=== PATIENT | male | born 1990 | race Caucasian/White ===

== ENCOUNTER 2019-11-18 04:56 | Observation (INO) | payer SELFPAY ==
[~2019-11-18] VITALS: Ht 170.2 cm; Wt 79.8 kg
[2019-11-18] MEDS ORDERED: LORAZEPAM INJ 2 MG/ML VIAL IV ONE ×3 (05:00→05:45)
[2019-11-18] MEDS ORDERED: SODIUM CHLORIDE 0.9% 1000ML 1,000 ML IV ONE ×2 (05:00→06:45)
[2019-11-18] MEDS ORDERED: LORAZEPAM INJ 2 MG/ML VIAL ONE (05:06)
[2019-11-18] MEDS ORDERED: ACETAMINOPHEN 1000 MG/100 ML IV STA (05:24)
[2019-11-18] MEDS ORDERED: ACETAMINOPHEN 1000 MG/100 ML 100 ML IV ONE (05:38)
[2019-11-18 05:46] LABS: BASOPHILS # (AUTO) 0.1 (0.0-0.1); BASOPHILS % 0.7 % (0.0-1.0); EOSINOPHILS % 0.2 % (0.0-6.0); HEMATOCRIT 41.9 % (38.2-49.6); HEMOGLOBIN 14.9 g/dL (14.0-18.0); LYMPHOCYTES # (AUTO) 0.9 (1.0-3.2); LYMPHOCYTES % 8.9 % (18.0-39.1); MEAN CORPUSCULAR HEMOGLOBIN 32.2 pg (28-32); MEAN CORPUSCULAR HGB CONC 35.6 g/dL (31-35); MEAN CORPUSCULAR VOLUME 90.5 fL (81-99); MONOCYTES # (AUTO) 0.8 (0.2-0.8); MONOCYTES % 7.8 % (4.4-11.3); NEUTROPHILS % 82.1 % (38.7-80.0); PLATELET COUNT 309 x10e3/uL (140-360); RED BLOOD COUNT 4.63 x10e6/uL (4.3-5.7); RED CELL DISTRIBUTION WIDTH 12.3 % (11.7-14.4)
[2019-11-18 05:54] LABS: CLARITY,URINE CLEAR (CLEAR); COLOR,URINE YELLOW (YELLOW); KETONES,URINE NEGATIVE (NEGATIVE); LEUKOCYTE ESTERASE ,URINE NEGATIVE (NEGATIVE); NITRITE,URINE NEGATIVE (NEGATIVE); PROTEIN,URINE DIPSTICK 2+ (NEGATIVE)
[2019-11-18 05:56] LABS: AMPHETAMINES SCREEN,URINE POSITIVE (NEGATIVE); BENZODIAZEPINES SCREEN,URINE NEGATIVE (NEGATIVE); PHENCYCLIDINE SCREEN,URINE NEGATIVE (NEGATIVE)
[2019-11-18 05:57] LABS: BILIRUBIN,URINE NEGATIVE (NEGATIVE); URINE UROBILINOGEN 1 mg/dL (0.2 - 1)
[2019-11-18 06:06] LABS: ALANINE AMINOTRANSFERASE 39 IU/L (0-55); ALBUMIN 4.4 g/dL (3.5-5.0); ALBUMIN/GLOBULIN RATIO 1.8 (0.8-2.0); ALKALINE PHOSPHATASE 73 IU/L (40-150); ANION GAP 13.6 mmol/L (8-16); BLOOD UREA NITROGEN 16 mg/dL (7-26); BUN/CREATININE RATIO 12 (6-25); CALCIUM 9.2 mg/dL (8.4-10.2); CARBON DIOXIDE 27 mmol/L (22-29); CHLORIDE 103 mmol/L (98-107); CREATINE KINASE 466 IU/L (30-200); CREATININE, SERUM 1.34 mg/dL (0.72-1.25); EST GLOMERULAR FILTRATION RATE > 60 ML/MIN (60-); GLUCOSE 102 mg/dL (74-118); POTASSIUM 3.6 mmol/L (3.5-5.1); SODIUM 140 mmol/L (136-145)
[2019-11-18 06:22] LABS: RBC,URINE 0-5 /HPF (0-5)
[2019-11-18 06:23] LABS: BACTERIA,URINE MODERATE /HPF; EPITHELIAL CELLS,URINE FEW /LPF; TRANSITIONAL EPI CELLS,URINE RARE
--- NOTE | 2019-11-18 06:31 | Emergency Department Note ---
History of Present Illnes History of Present Illness Chief Complaint: Drug Abuse/Intoxication History of Present Illness This is a 28 year old male a EMS with report of "unknown drug use" by Clark RAMIREZ and EMS; EMS reports patient was hallucinating, delusional, and paranoid, EMD administered Ketamine 400mg IM en route as EMS states that pt aggressive,. Historian: Patient, [place]/EMS Arrival Mode: [place] History limited by: condition of the patient (ALTERED) Onset (how long ago): unknown Treatments prior to arrival: other (KETAMINE 400 MG IM VIA EMS) Past Medical/Family History Physician Review I have reviewed the patient's past medical and family history. Any updates have been documented here. Past Medical History Unable to obtain PMH: altered mental status Recent Fever: No Clinical Suspicion of Infectio: No New/Unexplained Change in Ment: No Other Medical History: unknown Other Surgery: unknown Social History Unable to obtain PSH: altered mental status Other Last Tetanus: unknown Review of Systems Review of Systems Constitutional: Reports as per HPI Neurological: Reports as per HPI Physical Exam Related Data Triage Vital Signs Vital Signs Date Time Temp Pulse Resp B/P (MAP) Pulse Ox O2 Delivery O2 Flow Rate FiO2 11/18/19 05:00 100.3 137 24 99 Physical Exam CONSTITUTIONAL Constitutional: Present well-developed, Present well-nourished HENT HENT: Present normocephalic, Present atraumatic, Present oropharynx clear/moist, Present nose normal HENT L/R: Present left ext ear normal, Present right ext ear normal EYES Eyes: Reports PERRL, Reports conjunctivae normal NECK Neck: Present ROM normal PULMONARY Pulmonary: Present effort normal, Present breath sounds normal CARDIOVASCULAR Cardiovascular: Present regular rhythm, Present heart sounds normal, Present capillary refill normal, Present tachycardia (135) GASTROINTESTINAL Abdominal: Present soft, Present nontender, Present bowel sounds normal GENITOURINARY Genitourinary: Present exam deferred SKIN Skin: Present warm, Present dry MUSCULOSKELETAL Musculoskeletal: Present ROM normal NEUROLOGICAL Neurological: Present alert, Present abnormal coordination, Present other (CONFUSED, AGITATED) PSYCHOLOGICAL Psychological: Present mood/affect normal, Present judgement normal Results Laboratory Result Diagram: 11/18/19 0515 11/18/19 0515 Laboratory Laboratory Tests Test 11/18/19 05:27 11/18/19 05:15 Urine Color Yellow (YELLOW) Urine Clarity Clear (CLEAR) Urine pH 6.5 (5 - 7) Urine Specific [place] >=1.030 (1.010-1.025) Urine Protein 2+ (NEGATIVE) Urine Glucose (UA) Negative (NEGATIVE) Urine Ketones Negative (NEGATIVE) Urine Blood Negative (NEGATIVE) Urine Nitrite Negative (NEGATIVE) Urine Bilirubin Negative (NEGATIVE) Urine Urobilinogen 1 mg/dL (0.2 - 1) Urine Leukocyte Esterase Negative (NEGATIVE) Urine Opiates Screen Negative (NEGATIVE) Urine Methadone Screen Negative (NEGATIVE) Urine Barbiturates Screen Negative (NEGATIVE) Urine Phencyclidine Screen Negative (NEGATIVE) Urine Amphetamines Screen Positive (NEGATIVE) Urine Methamphetamines Screen Positive (NEGATIVE) Urine Benzodiazepines Screen Negative (NEGATIVE) Urine Cocaine Screen Negative (NEGATIVE) Urine Cannabinoids Screen Negative (NEGATIVE) White Blood Count 9.78 x10e3/uL (4.8-10.8) Red Blood Count 4.63 x10e6/uL (4.3-5.7) Hemoglobin 14.9 g/dL (14.0-18.0) Hematocrit 41.9 % (38.2-49.6) Mean Corpuscular Volume 90.5 fL (81-99) Mean Corpuscular Hemoglobin 32.2 pg (28-32) Mean Corpuscular Hemoglobin Concent 35.6 g/dL (31-35) Red Cell Distribution Width 12.3 % (11.7-14.4) Platelet Count 309 x10e3/uL (140-360) Neutrophils (%) (Auto) 82.1 % (38.7-80.0) Lymphocytes (%) (Auto) 8.9 % (18.0-39.1) Monocytes (%) (Auto) 7.8 % (4.4-11.3) Eosinophils (%) (Auto) 0.2 % (0.0-6.0) Basophils (%) (Auto) 0.7 % (0.0-1.0) Neutrophils # (Auto) 8.0 (2.1-6.9) Lymphocytes # (Auto) 0.9 (1.0-3.2) Monocytes # (Auto) 0.8 (0.2-0.8) Eosinophils # (Auto) 0.0 (0.0-0.4) Basophils # (Auto) 0.1 (0.0-0.1) Absolute Immature Granulocyte (auto 0.03 x10e3/uL (0-0.1) Sodium Level 140 mmol/L (136-145) Potassium Level 3.6 mmol/L (3.5-5.1) Chloride Level 103 mmol/L (98-107) Carbon Dioxide Level 27 mmol/L (22-29) Anion Gap 13.6 mmol/L (8-16) Blood Urea Nitrogen 16 mg/dL (7-26) Creatinine 1.34 mg/dL (0.72-1.25) Estimat Glomerular Filtration Rate > 60 ML/MIN (60-) BUN/Creatinine Ratio 12 (6-25) Glucose Level 102 mg/dL (74-118) Lactic Acid Level 5.3 mmol/L (0.5-2.0) Calcium Level 9.2 mg/dL (8.4-10.2) Total Bilirubin 0.8 mg/dL (0.2-1.2) Aspartate Amino Transf (AST/SGOT) 45 IU/L (5-34) Alanine Aminotransferase (ALT/SGPT) 39 IU/L (0-55) Alkaline Phosphatase 73 IU/L (40-150) Creatine Kinase 466 IU/L (30-200) Creatine Kinase MB 6.00 ng/mL (0-5.0) Troponin I 0.007 ng/mL (0-0.300) Total Protein 6.8 g/dL (6.5-8.1) Albumin 4.4 g/dL (3.5-5.0) Globulin 2.4 g/dL (2.3-3.5) Albumin/Globulin Ratio 1.8 (0.8-2.0) Lab results reviewed: Yes Procedures 12 Lead ECG Interpretation ECG Interpretation : ECG: ECG 1 Pneumatic Tool Repairer: Interpreted by ED physician Date: Nov 18, 2019 Time: 05:04 Rhythm: sinus tachycardia Rate: tachycardia BPM: 132 QRS axis: right ST segments normal: Yes T waves normal: Yes Other findings: no other findings Clinical Impression: abnormal ECG Assessment & Plan Medical Decision Making MDM PT BROUGHT BY EMS WITH REPORT OF DELUSIONS, PARANOIA, AND AGITATION, THEY STATE POLICE BELIEVE PT HAD BEEN USING METH AMPHETAMINE, PT IS ALTERED ON ARRIVAL, DISORIENTED. CBC, CMP, THROID PANEL, UA, UDS, CXR, CT BRAIN , CARDIAC ENZYMES, EKG ORDERED TO EVAL FOR RHABDOMYOLYSIS, MYOCARDIAL INFARCITON, INTRACRANIAL ABNORMALITY, UTI, DRUG USE, ELECTROLYTE ABNORMALITY, PT WITH LOW GRADE FEVER AND POSITIVE LACTIC ACID, HOWEVER HAS DRUG SCREEN POSITIVE FOR METH AMPHETAMINE AND AMPHETAMINE, LACTIC ACID IS NOT DUE TO SEPSIS. CARE TRANSFERRED TO DR RUSS, CXR AND CT HEAD PENDING Assessment & Plan Final Impression: (1) Methamphetamine abuse (2) Delirium Last Vital Signs Date Time Temp Pulse Resp B/P (MAP) Pulse Ox O2 Delivery O2 Flow Rate FiO2 11/18/19 05:00 100.3 137 24 99 Medications in the ED Lorazepam 2 mg ONCE ONCE IV ; Start 11/18/19 at 05:00; Stop 11/18/19 at 05:05; Status DC Sodium Chloride 1,000 ml @ 0 mls/hr Q0M ONCE IV ; Start 11/18/19 at 05:00; Stop 11/18/19 at 05:01; Status DC Lorazepam 2 mg STK-MED ONCE .ROUTE ; Start 11/18/19 at 05:06; Stop 11/18/19 at 05:00; Status DC Acetaminophen 1,000 mg NOW STAT IV ; Start 11/18/19 at 05:24; Stop 11/18/19 at 05:26; Status DC Lorazepam 2 mg ONCE ONCE IV ; Start 11/18/19 at 05:30; Stop 11/18/19 at 05:31; Status DC Acetaminophen 100 ml @ ud STK-MED ONCE IV ; Start 11/18/19 at 05:38; Stop 11/18/19 at 05:32; Status DC Cefepime HCl 100 ml @ 200 mls/hr ONCE ONCE IV ; Start 11/18/19 at 05:45; Stop 11/18/19 at 06:14; Status UNV Lorazepam 2 mg ONCE ONCE IV ; Start 11/18/19 at 05:45; Stop 11/18/19 at 06:12; Status DC MARYURI ZHOU MD Nov 18, 2019 06:31
[2019-11-18 06:54] LABS: SALICYLATE < 5.0 mg/dL (0-30)
--- NOTE | 2019-11-18 07:00 | NUR ---
RECEIVED REPORT FROM ACETYLENE TORCH SOLDERER. WILL COMPLETE AN ASSESSMENT
[2019-11-18] MEDS ORDERED: HALOPERIDOL LACTATE 5 MG/ML VIAL IM ONE (07:15)
[2019-11-18 07:28] LABS: FREE THYROXINE INDEX 2.4633 (1.4-3.8); THYROID STIMULATING HORMONE 2.049 uIU/mL (0.350-4.940)
[2019-11-18] MEDS ORDERED: CEFEPIME 2 GM/NS 0.9% 100 ML 100 ML IV ONE (07:30)
--- NOTE | 2019-11-18 08:12 | NUR ---
2ND LACTIC COMPLETED AFTER NORMAL SALINE BOLUS
--- NOTE | 2019-11-18 08:28 | NUR ---
PATIENT MEDICATED, RADIOLOGY CALLED FOR PATIENT TO GO TO CTHEAD
--- NOTE | 2019-11-18 08:55 | Diagnostic Imaging Report ---
Exam: Head CT without contrast History: Altered mental status Comparison studies: None Technique: Axial images were obtained from the skull base to the vertex. Coronal and sagittal images reconstructed from the axial data. Dose modulation, iterative reconstruction, and/or weight based adjustment of the mA/kV was utilized to reduce the radiation dose to as low as reasonably achievable. Radiation dose: Total DLP: 832.18 mGy*cm. Estimated effective dose: DLP x 0.015 Intravenous contrast: None Findings: Scalp: No abnormalities. Bones: No fractures, blastic or lytic lesions. Brain sulci: Appropriate for age. Ventricles: Normal in size and configuration. No hydrocephalus. Extra-axial spaces: No masses, no fluid collection. Parenchyma: No abnormal densities. No masses, acute hemorrhage, acute or chronic vascular insults. Sellar/suprasellar region: No abnormalities. Craniocervical junction: Patent foramen magnum. No Chiari one malformation. Included paranasal sinuses: Clear. Middle ear mastoid cavities: Clear. Incidental findings: Age-indeterminate bilateral nasal bone and frontal process maxilla fractures. IMPRESSION: 1. No intracranial abnormalities. 2. Age-indeterminate bile nasal bone and frontal process maxilla fractures. Can correlate with point tenderness. Signed by: Dr. Sarwat Stark M.D. on 11/18/2019 8:51 AM
--- NOTE | 2019-11-18 09:11 | Diagnostic Imaging Report ---
X-ray chest AP portable Comparison: None History: Altered mental status. Overdose. Findings: Central airways unremarkable. Cardiomediastinal silhouettes unremarkable. No pleural effusion. No pneumothorax. No focal lung disease. Visualized skeletal structures and upper abdomen unremarkable. Impression: No acute cardiopulmonary disease. Signed by: Don Landa MD on 11/18/2019 9:07 AM
[2019-11-18 10:40] VITALS: BP 148/81
--- NOTE | 2019-11-18 10:40 | NUR ---
PATIENT RECEIVED FROM ER PER STRETCHER. ALERT AND VERBALLY RESPONSIVE. ASSISTED TO BED BY 2 STAFFS. PATIENT REFUSED TO ANSWER ASSESSMENT QUESTIONS STATING " I DON'T WANT TO TALK". REPOSITIONED IN BED. SCRATCH NOTED TO NOSE, TATOO TO BODY. TELEMETRY BOX [address] IN BED RESTING WITH NO S/S OF DISTRESS. CALL LIGHT AT REACH. 1:1 SITTER AT BED SIDE.
[2019-11-18 12:01] VITALS: BP 105/73
--- NOTE | 2019-11-18 15:46 | NUR ---
PATIENT IN BED RESTING WITH EYES CLOSED, NO DISTRESS NOTED. CALL LIGHT AT REACH. 1:1 SITTER AT BED SIDE.
[2019-11-18 16:09] VITALS: BP 129/67
[2019-11-18] MEDS ORDERED: ONDANSETRON HCL INJ 2MG/ML 2ML 2 MG/ML VIAL IV PRN (16:30)
[2019-11-18] MEDS ORDERED: LORAZEPAM INJ 2 MG/ML VIAL IV PRN (16:30)
[2019-11-18] MEDS ORDERED: ACETAMINOPHEN 325 MG TAB PO PRN (16:30)
[2019-11-18] MEDS ORDERED: HYDRALAZINE HCL 20 MG/ML VIAL IV PRN (16:30)
[2019-11-18] MEDS ORDERED: DEXTROSE 5%/0.9% SOD CHL 1,000 ML IV SCH (17:00)
--- NOTE | 2019-11-18 19:21 | NUR ---
BEDSIDE SHIFT REPORT GIVEN TO ON COMING NURSE.
[2019-11-18 20:33] VITALS: BP 106/42
[2019-11-18 21:00] VITALS: BP 106/42
[2019-11-19 00:50] VITALS: BP 126/73
[2019-11-19 05:06] VITALS: BP 85/50
[2019-11-19 05:30] LABS: BASOPHILS # (AUTO) 0.1 (0.0-0.1); BASOPHILS % 1.4 % (0.0-1.0); EOSINOPHILS # (AUTO) 0.1 (0.0-0.4); EOSINOPHILS % 2.2 % (0.0-6.0); HEMATOCRIT 43.2 % (38.2-49.6); HEMOGLOBIN 14.9 g/dL (14.0-18.0); LYMPHOCYTES # (AUTO) 1.6 (1.0-3.2); LYMPHOCYTES % 30.5 % (18.0-39.1); MEAN CORPUSCULAR HEMOGLOBIN 32.5 pg (28-32); MEAN CORPUSCULAR HGB CONC 34.5 g/dL (31-35); MEAN CORPUSCULAR VOLUME 94.1 fL (81-99); MONOCYTES # (AUTO) 0.6 (0.2-0.8); MONOCYTES % 12.6 % (4.4-11.3); NEUTROPHILS # (AUTO) 2.7 (2.1-6.9); NEUTROPHILS % 53.3 % (38.7-80.0); PLATELET COUNT 267 x10e3/uL (140-360); RED BLOOD COUNT 4.59 x10e6/uL (4.3-5.7); RED CELL DISTRIBUTION WIDTH 12.7 % (11.7-14.4)
[2019-11-19 06:13] LABS: ALANINE AMINOTRANSFERASE 31 IU/L (0-55); ALBUMIN 3.8 g/dL (3.5-5.0); ALBUMIN/GLOBULIN RATIO 1.7 (0.8-2.0); ALKALINE PHOSPHATASE 63 IU/L (40-150); ANION GAP 12.8 mmol/L (8-16); BLOOD UREA NITROGEN 11 mg/dL (7-26); BUN/CREATININE RATIO 13 (6-25); CALCIUM 8.7 mg/dL (8.4-10.2); CARBON DIOXIDE 23 mmol/L (22-29); CHLORIDE 111 mmol/L (98-107); CREATININE, SERUM 0.88 mg/dL (0.72-1.25); EST GLOMERULAR FILTRATION RATE > 60 ML/MIN (60-); GLUCOSE 72 mg/dL (74-118); POTASSIUM 3.8 mmol/L (3.5-5.1); SODIUM 143 mmol/L (136-145)
--- NOTE | 2019-11-19 06:56 | NUR ---
Received patient lying in bed with eyes open. Respiration even and unlabored without SOB. Verbalized he wants ativan. Call light in reach.
[2019-11-19 08:00] VITALS: BP 85/50
--- NOTE | 2019-11-19 08:19 | NUR ---
Patient is pacing the room and states " I have to go, I have to go" Noted restlessness. Patient is advised not to leave against medical advise. States " I've done this before" Patient is adamant despite the education given regarding the risk of leaving without seeing the doctor. Spoke with Mavis Nagy on the phone and notified about the situation. PIV to right AC and left hand discontinued, catheter tip intact, no bleeding noted. Personal belongings taken.
[2019-11-19 08:20] VITALS: BP 134/80
--- NOTE | 2019-11-19 14:57 | Discharge Summary ---
HISTORY: Unknown. SURGICAL HISTORY: Unknown. HOSPITAL COURSE: A 28-year-old male, presented to the ER via ambulance with report of unknown drug use by Clark RAMIREZ. EMS reports the patient was hallucinating, delusional and paranoid. EMS administered 400 mg of ketamine, states the patient is aggressive. The patient was admitted. CT of the brain was negative. Chest x-ray was negative. Urine drug screen was positive for amphetamines and methamphetamine. WBC is within normal limits. The patient is afebrile. The patient was kept overnight, but decided to leave AMA before primary service could see him. He was advised to stop drug use. He is awake, alert, oriented, and tolerating p.o. and still wishing to discharge home despite risks associated with doing so. At the time of discharge, vital signs are stable. The patient is afebrile. Dictated by Mavis Nagy NP Juan Miguel Carey MD MUKUL/MODL /[id number]
== END 2019-11-19 08:22 | disposition left against medical advice (07) ==
LOC: ER 04:56 → ERHOLD 08:30 → MED/SURG2 10:34
PROVIDERS: ADMIT Internal Medicine; ATTEND Internal Medicine
DX: F15.121 Other stimulant abuse with intoxication delirium (principal); Z11.59 Encounter for screening for other viral diseases
CPT/HCPCS: 36415; 70450; 71045; 80053; 80307; 80320; 80329; 81001; 82550; 82553; 83605; 84436; 84443; 84479; 84484; 85025; 87635; 93005; 99284; G0378; J1630; J2060; J7030; J7042

== ENCOUNTER 2020-01-29 16:49 | Emergency (ER) | payer SELFPAY ==
[~2020-01-29] VITALS: Ht 170.2 cm; Wt 79.8 kg
[2020-01-29] MEDS ORDERED: TETANUS/DIPHTHERIA TOX ADULT 0.5 ML SYR IM ONE (17:15)
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
== END 2020-01-29 17:44 | disposition home or self-care (01) ==
LOC: ER 16:55
DX: T21.25XA Burn of second degree of buttock, initial encounter (principal); X19.XXXA Contact with other heat and hot substances, initial encounter; F17.210 Nicotine dependence, cigarettes, uncomplicated
CPT/HCPCS: 90471; 90714; 99281